=== PATIENT | male | born 1940 | race Caucasian/White ===

== ENCOUNTER → 2024-08-09 | Outpatient (CLI) | payer MEDICARE, BC, SELFPAY ==
[2024-08-09 11:06] LABS: Collection Type, Urine Clean Catch; Squamous Epithelial Cell,Urine 0 /hpf (0-5)
[2024-08-09 11:26] LABS: Basophils % (Auto) 1 % (0-2.5); Eosinophils # (Auto) 0.6 Thou/mm3 (0.0-0.5); Eosinophils % (Auto) 9 % (0-10); Hematocrit 37.1 % (41.0-53.0); Hemoglobin 12.1 g/dL (13.5-16.0); Immature Granulocytes % (Auto) 0 % (0-0); Immature Granulocytes Auto 0.02 Thou/mm3 (0.00-0.00); Lymphocytes # (Auto) 2.4 Thou/mm3 (1.0-4.8); Lymphocytes % (Auto) 34 % (10-50); Mean Corpuscular HGB Conc 32.6 g/dl (31.0-37.0); Mean Corpuscular Hemoglobin 29.7 pg (25.0-35.0); Mean Corpuscular Volume 91 fL (80-100); Monocytes # (Auto) 0.5 Thou/mm3 (0.0-0.8); Monocytes % (Auto) 7 % (0-12); Neutrophils # (Auto) 3.5 Thou/mm3 (1.8-7.7); Neutrophils % (Auto) 50 % (37-80); Nucleated Red Blood Cell % 0 /100 WBC (0); Platelet Count 207 Thou/mm3 (140-440); RDW Standard Deviation 44.4 fL (35.1-43.9); Red Blood Count 4.08 Miln/mm3 (4.50-5.90)
[2024-08-09 11:27] LABS: Bacteria,Urine Rare; Bilirubin,Urine Negative (Negative); Blood,Urine Negative (Negative); Clarity,Urine Turbid (Clear/Hazy); Color,Urine Lt-Yellow (Lt Yel-Yel); Glucose, Urine Negative (Negative); Ketones,Urine Negative (Negative); Leukocyte Esterase,Urine Positive (Negative); Nitrite,Urine Positive (Negative); PH,Urine 6.5 (5.0-7.0); Protein,Urine Negative (Neg - Trace); RBC,Urine 10 /hpf (0-3); Specific Gravity,Urine 1.006 (1.001-1.035); Urobilinogen,Urine Negative mg/dL (0.0-1.0); WBC,Urine 156 /hpf (0-5)
[2024-08-09 11:34] LABS: Glucose Estimated Average 137 mg/dL (80-131); Hemoglobin A1C 6.4 % Hgb (4.8-6.0)
[2024-08-09 11:38] LABS: Creatinine MALB Rnd Ur 17 mg/dL (30-125); Microalbumin Creat Ratio 41 mg/gCrea (<30); Microalbumin, Random Urine 7 mg/L (0-300)
[2024-08-09 11:44] LABS: PSA Medicare Annual Scrn 2.73 ng/mL (0-4.00)
[2024-08-09 12:00] LABS: Alanine Aminotransferase 13 U/L (10-49); Albumin/Globulin Ratio 2.4 (1.2-2.2); Alkaline Phosphatase 82 U/L (46-116); Anion Gap 8 (7-16); Aspartate Amino Transferase 13 U/L (0-34); BUN/Creatinine Ratio 15 Ratio (12-20); Bilirubin,Total 0.3 mg/dL (0.3-1.2); Blood Urea Nitrogen 17 mg/dL (9-23); Calcium 9.6 mg/dL (8.3-10.6); Calcium (Corrected) 9.6 mg/dL (8.5-10.1); Carbon Dioxide 26.5 mMol/L (20.0-31.0); Cardiac Risk Estimate 3.2 RATIO (4.0-6.7); Chloride 107 mMol/L (98-107); Cholesterol 146 mg/dL (132-200); Creatinine (Component) 1.1 mg/dL (0.6-1.3); Globulin 2.1 gm/dL (2.3-3.5); Glucose 101 mg/dL (74-106); HDL Cholesterol 46 mg/dL (40-60); LDL Cholesterol,Calculated 57 mg/dL (0-130); Osmolality,Calculated 282 (275-295); Potassium 4.7 mMol/L (3.4-5.1); Sodium 141 mMol/L (136-145); Thyroid Stimulating Hormone 2.48 uIU/mL (0.55-4.78); Total Protein 7.1 gm/dL (5.7-8.2); Triglycerides 214 mg/dL (30-150); eGFR > 60 See Note
== END | disposition home or self-care (01) ==
LOC: COPL 10:34
PROVIDERS: PCP Internal Medicine; Referring Provider Internal Medicine; Visit Provider Internal Medicine
DX: N17.9 Acute kidney failure, unspecified (principal); E11.9 Type 2 diabetes mellitus without complications; I10 Essential (primary) hypertension; E78.5 Hyperlipidemia, unspecified; E03.9 Hypothyroidism, unspecified
CPT/HCPCS: 36415; 80053; 80061; 81001; 82043; 82570; 83036; 84153; 84443; 85025; G0103

== ENCOUNTER → 2024-12-16 | Outpatient (CLI) | payer MEDICARE, BC, SELFPAY ==
[2024-12-16 08:13] LABS: Collection Type, Urine Clean Catch
[2024-12-16 08:39] LABS: Basophils # (Auto) 0.1 Thou/mm3 (0.0-0.2); Basophils % (Auto) 1 % (0-2.5); Eosinophils # (Auto) 0.6 Thou/mm3 (0.0-0.5); Eosinophils % (Auto) 7 % (0-10); Hematocrit 36.4 % (41.0-53.0); Immature Granulocytes % (Auto) 0 % (0-0); Immature Granulocytes Auto 0.03 Thou/mm3 (0.00-0.00); Lymphocytes # (Auto) 2.4 Thou/mm3 (1.0-4.8); Lymphocytes % (Auto) 26 % (10-50); Mean Corpuscular Hemoglobin 29.2 pg (25.0-35.0); Mean Corpuscular Volume 89 fL (80-100); Monocytes # (Auto) 0.7 Thou/mm3 (0.0-0.8); Monocytes % (Auto) 8 % (0-12); Neutrophils # (Auto) 5.5 Thou/mm3 (1.8-7.7); Neutrophils % (Auto) 59 % (37-80); Nucleated Red Blood Cell % 0 /100 WBC (0); Platelet Count 201 Thou/mm3 (140-440); RDW Standard Deviation 43.4 fL (35.1-43.9); Red Blood Count 4.11 Miln/mm3 (4.50-5.90); White Blood Count 9.4 Thou/mm3 (3.8-10.6)
[2024-12-16 09:01] LABS: Alanine Aminotransferase 12 U/L (10-49); Albumin, Serum 4.6 gm/dL (3.4-4.8); Albumin/Globulin Ratio 2.1 (1.2-2.2); Alkaline Phosphatase 82 U/L (46-116); Anion Gap 8 (7-16); Aspartate Amino Transferase 13 U/L (0-34); BUN/Creatinine Ratio 19 Ratio (12-20); Bilirubin,Total 0.6 mg/dL (0.3-1.2); Blood Urea Nitrogen 27 mg/dL (9-23); Calcium 9.4 mg/dL (8.3-10.6); Calcium (Corrected) 9.4 mg/dL (8.5-10.1); Carbon Dioxide 26.4 mMol/L (20.0-31.0); Chloride 106 mMol/L (98-107); Cholesterol 136 mg/dL (132-200); Creatinine (Component) 1.4 mg/dL (0.6-1.3); Globulin 2.2 gm/dL (2.3-3.5); Glucose 133 mg/dL (74-106); HDL Cholesterol 45 mg/dL (40-60); LDL Cholesterol,Calculated 43 mg/dL (0-130); Osmolality,Calculated 286 (275-295); Potassium 4.4 mMol/L (3.4-5.1); Sodium 140 mMol/L (136-145); Thyroid Stimulating Hormone 0.16 uIU/mL (0.55-4.78); Total Protein 6.8 gm/dL (5.7-8.2); Triglycerides 238 mg/dL (30-150); eGFR 50 See Note
[2024-12-16 09:15] LABS: Glucose Estimated Average 131 mg/dL (80-131); Hemoglobin A1C 6.2 % Hgb (4.8-6.0)
[2024-12-16 09:27] LABS: Bacteria,Urine 3+; Bilirubin,Urine Negative (Negative); Blood,Urine Negative (Negative); Clarity,Urine Turbid (Clear/Hazy); Color,Urine Lt-Yellow (Lt Yel-Yel); Glucose, Urine Negative (Negative); Ketones,Urine Negative (Negative); Leukocyte Esterase,Urine Positive (Negative); Nitrite,Urine Positive (Negative); Protein,Urine Negative (Neg - Trace); RBC,Urine 3 /hpf (0-3); Specific Gravity,Urine 1.014 (1.001-1.035); Squamous Epithelial Cell,Urine < 1 /hpf (0-5); Urobilinogen,Urine Negative mg/dL (0.0-1.0); WBC,Urine 408 /hpf (0-5)
== END | disposition home or self-care (01) ==
LOC: COPL 07:06
PROVIDERS: PCP Internal Medicine; Referring Provider Internal Medicine; Visit Provider Internal Medicine
DX: E11.9 Type 2 diabetes mellitus without complications (principal); I10 Essential (primary) hypertension; E78.5 Hyperlipidemia, unspecified; E03.9 Hypothyroidism, unspecified
CPT/HCPCS: 36415; 80053; 80061; 81001; 83036; 84439; 84443; 85025

== ENCOUNTER → 2025-01-03 | Outpatient (CLI) | payer MEDICARE, BC, SELFPAY ==
--- NOTE | 2025-01-03 14:00 | XR_ITS ---
Examination: Retroperitoneal ultrasound, complete Technique: Multiple high resolution grayscale images of the retroperitoneum obtained, including kidneys and bladder. Exam date and time:January 03, 2025 1416 hours INDICATIONS: Acute renal insufficiency on laboratory examinations over weeks ago. FINDINGS: Right kidney 10.2 cm cortex 1.4 cm Left kidney 10.7 cm renal cortex 1.1 cm Moderate bilateral renal parenchymal scar formation. No hydronephrosis. No bladder mass or bladder calculi Bladder prevoid volume 430 cc postvoid volume 367 cc No prostatomegaly no prostate nodules IMPRESSION: Bilateral renal cortical thinning Moderate bilateral renal parenchymal scar formation. No hydronephrosis
== END | disposition home or self-care (01) ==
LOC: CDIM 13:52
PROVIDERS: PCP Internal Medicine; Referring Provider Internal Medicine; Visit Provider Internal Medicine
DX: N28.89 Other specified disorders of kidney and ureter (principal)
CPT/HCPCS: 76770

== ENCOUNTER → 2025-02-20 | Outpatient (CLI) | payer MEDICARE, BC, SELFPAY ==
--- NOTE | 2025-02-20 11:44 | XR_ITS ---
Examination: Thoracic spine 3 views TECHNIQUE: AP lateral coned lateral upper dorsal spine 3 views Date and time: February 20, 2025 1217 hours INDICATIONS: Upper back pain beginning several years ago. FINDINGS: Thoracic dextroscoliosis 10 degrees No thoracic fracture Moderate thoracic spondylosis Mild to moderate diffuse thoracic degenerative disc disease IMPRESSION: Mild to moderate diffuse thoracic degenerative disc disease
--- NOTE | 2025-02-20 11:44 | XR_ITS ---
Examination: Knee bilateral, 7 views Technique: Knee AP, lateral, oblique each knee total 6 views, bilateral axial knees single view total 7 views Date and time of exam: 10/23/2024 1201 hours INDICATIONS: Bilateral knee pain several years FINDINGS: Right knee moderate to advanced narrowing medial joint space, moderate osteoarthritis patellofemoral joint No fracture Total left knee arthroplasty. Satisfactory alignment No loosening of the prosthetic components No patellar dislocation IMPRESSION: Right knee moderate to advanced narrowing medial joint space, moderate osteoarthritis patellofemoral joint
--- NOTE | 2025-02-20 11:44 | XR_ITS ---
Examination: Bilateral hips, AP pelvis, 5 views Technique: AP, lateral views both hips, AP pelvis, 5 views Exam date and time: 02/20/2025 1201 hours INDICATIONS: Bilateral hip pain several years FINDINGS: No hip fracture or hip dislocation Moderate narrowing hip joints Bones the pelvis intact IMPRESSION: Bilateral moderate narrowing hip joints
--- NOTE | 2025-02-20 11:44 | XR_ITS ---
Examination: Lumbar spine, 5 views Technique: Lumbar spine AP, lateral, coned lateral lower lumbar spine, bilateral obliques 5 views Exam date and time: February 20, 2025 1201 hours INDICATIONS: Low back pain beginning several years ago FINDINGS: Comparison 05/16/2022 Advanced diffuse facet arthropathy No lumbar fracture Diffuse lumbar degenerative disc disease, advanced L4-L5, L5-S1 Heavy vascular calcification IMPRESSION: Diffuse lumbar degenerative disc disease, advanced L4-L5, L5-S1 with significant spinal stenosis
--- NOTE | 2025-02-20 11:44 | XR_ITS ---
EXAMINATION: Cervical spine, 5 views Technique: Cervical spine AP, AP odontoid, lateral, bilateral obliques, 5 views Exam date and time: 10/23/2024 1201 hours INDICATIONS: Neck pain several years. FINDINGS: Satisfactory alignment cervical vertebral bodies Advanced degenerative disc disease C5 C6 C6 C7 C7 T1 Intact odontoid No cervical fracture Heavy carotid vascular calcification IMPRESSION: Advanced degenerative disc disease C5-C6, C6-C7, C7-T1 with moderate bilateral neural foraminal stenosis at these levels
== END | disposition home or self-care (01) ==
LOC: CDIM 11:30
PROVIDERS: Referring Provider Internal Medicine; Visit Provider Internal Medicine
DX: M50.322 Other cervical disc degeneration at C5-C6 level (principal); M48.02 Spinal stenosis, cervical region; M50.33 Other cervical disc degeneration, cervicothoracic region; M48.03 Spinal stenosis, cervicothoracic region; M51.360 Other intervertebral disc degeneration, lumbar region with discogenic back pain only; M48.061 Spinal stenosis, lumbar region without neurogenic claudication; M51.370 Other intervertebral disc degeneration, lumbosacral region with discogenic back pain only; M48.07 Spinal stenosis, lumbosacral region; M51.34 Other intervertebral disc degeneration, thoracic region; M25.852 Other specified joint disorders, left hip; M25.851 Other specified joint disorders, right hip; M25.861 Other specified joint disorders, right knee; Z96.652 Presence of left artificial knee joint; M25.562 Pain in left knee; M17.11 Unilateral primary osteoarthritis, right knee
CPT/HCPCS: 72050; 72072; 72110; 73522; 73564

== ENCOUNTER → 2025-03-14 | Outpatient (CLI) | payer MEDICARE, BC, SELFPAY ==
[2025-03-14 08:16] LABS: Collection Type, Urine Clean Catch
[2025-03-14 09:17] LABS: Albumin, Serum 4.7 gm/dL (3.4-4.8); Anion Gap 12 (7-16); BUN/Creatinine Ratio 18 Ratio (12-20); Blood Urea Nitrogen 27 mg/dL (9-23); Calcium 9.4 mg/dL (8.3-10.6); Calcium (Corrected) 9.4 mg/dL (8.5-10.1); Carbon Dioxide 25.5 mMol/L (20.0-31.0); Chloride 102 mMol/L (98-107); Creatinine (Component) 1.5 mg/dL (0.6-1.3); Free T4 (Free Thyroxine) 1.94 ng/dL (0.89-1.76); Glucose 166 mg/dL (74-106); Osmolality,Calculated 286 (275-295); Phosphorous 2.9 mg/dL (2.4-5.1); Potassium 4.7 mMol/L (3.4-5.1); Sodium 139 mMol/L (136-145); Thyroid Stimulating Hormone 0.18 uIU/mL (0.55-4.78); eGFR 45 See Note
[2025-03-14 09:52] LABS: Bacteria,Urine 2+; Bilirubin,Urine Negative (Negative); Blood,Urine Negative (Negative); Clarity,Urine Turbid (Clear/Hazy); Color,Urine Lt-Yellow (Lt Yel-Yel); Glucose, Urine Negative (Negative); Hyaline Casts,Urine < 1 /hpf (0-1); Ketones,Urine Negative (Negative); Leukocyte Esterase,Urine Positive (Negative); Nitrite,Urine Positive (Negative); PH,Urine 5.5 (5.0-7.0); Protein,Urine Negative (Neg - Trace); RBC,Urine 2 /hpf (0-3); Specific Gravity,Urine 1.013 (1.001-1.035); Squamous Epithelial Cell,Urine < 1 /hpf (0-5); Urobilinogen,Urine Negative mg/dL (0.0-1.0); WBC,Urine 129 /hpf (0-5)
[2025-03-14 09:58] LABS: Culture Indicated,Urine Yes
== END | disposition home or self-care (01) ==
LOC: COPL 07:17
PROVIDERS: PCP Internal Medicine; Referring Provider Internal Medicine; Visit Provider Internal Medicine
DX: E03.9 Hypothyroidism, unspecified (principal); N17.9 Acute kidney failure, unspecified; N39.0 Urinary tract infection, site not specified
CPT/HCPCS: 36415; 80069; 81001; 84439; 84443; 87077; 87086; 87186

== ENCOUNTER 2025-03-19 02:04 | Emergency (ER) | payer MEDICARE, BC, SELFPAY ==
[2025-03-19 02:11] VITALS: BP 125/73; PULSE 106; RESP 19; TEMP 37.3; O2SAT 94; BMI 25.1
--- NOTE | 2025-03-19 02:23 | PD.EDABDPN ---
ED Abdominal Pain RME/HPI General Chief Complaint: General Adult/Misc Complain Stated complaint: CONSTIPATION Time seen by provider: 03/19/25 02:43 Arrival date/time: 03/19/25 02:04 RME / HPI RME / HPI narrative: This section includes all my notes and documentations, including HPI, PE, and ED course. Sushant Bradley MD HPI: 85yo male with a history of DM presents to the ED for a chief complaint of constipation. No bowel movement for 2 days. No nausea or vomiting. No alcohol or illicit drug use. No fever or chills. No other complaints reported. ROS: All negative except as documented in HPI. Physical Exam: General: Alert and oriented. No acute distress when remaining still. Eyes: Conjunctivae and lids clear. ENT: No nasal congestion. Neck: Supple. Heart: RRR. Lungs: No respiratory distress. Good air movement. No rhonchi, wheezing, rales. Abdomen: Soft with suprapubic tenderness. Normal bowel sounds. No distension. No rebound or guarding. Back: No CVA tenderness. Skin: Warm and dry. Neuro: Alert and oriented X 3. Rectal: External hemorrhoids noted, nonthrombosed. I reviewed EMS notes. I reviewed all diagnostic test results. My review of the CT abdomen pelvis report is constipation. Blood tests unremarkable. UA showed positive nitrite, positive leukocyte esterase, 6 RBCs, 61 WBCs, and 2+ bacteria. At this point, diagnoses include Urinary retention, Constipation, UTI (urinary tract infection), and Hemorrhoids. Treatment here included indwelling Marrero catheter, NS and Rocephin. Significant improvement noted. Recommend outpatient management. Based on my best medical judgment, made decision no further evaluation or treatment indicated at this time. Patient understands and agrees to the discharge instructions customized and printed, see below. Discharge Instructions from Dr. Bradley printed for you: 1. After evaluation, your diagnoses include urinary retention and severe constipation and urinary tract infection and hemorrhoids. 2. For your urinary retention, care of the Marrero catheter as instructed in the attached handout. Do not remove the Marrero catheter until cleared by a doctor taking care of you. 3. For your severe constipation: -Take Senokot S (not plain Senokot, OTC so prescription not needed) four pills at bedtime and milk of magnesia as needed. May take a few days but this will help clear out your bowels. -You have hard feces in your rectum. Where a glove with K-Y jelly and insert 2 fingers in your rectum. And evacuate as much as possible. ?To help current constipation and prevent future constipation, increase oral fluid because dehydration cause severe constipation. Maintain clear urine. If dark or yellow, increase oral fluid. ?And every day, increase fresh fruits and fresh vegetables and physical exercise. 4. For UTI, take cefdinir to kill the germs. And increase oral fluid and maintain clear urine. If dark or yellow, increase oral fluid. 5. For hemorrhoids, use Anusol as prescribed. 6. See a private doctor on 03/21/2025 for recheck and further care. Ask to review all test results and official radiology reports, to make sure you receive all necessary follow-ups and monitoring, including final urine culture results from today. To make sure there is no serious intra-abdominal condition, ask for help with more investigation not available here in the ER. Such as EGD or scoping the stomach, colonoscopy or scoping the colon, and referral to see steward/stewardess lounge. Ask for help until you are completely better. Ask for referral to see urologist for your urinary retention. 7. Seek immediate medical care with worsening or with any concerns. Sushant Bradley MD Related Data Home Medications ?Medication ?Instructions ?Recorded ?Confirmed Levothyroxine * (SYNTHROID *) 125 mcg PO QDAY ##30 03/22/16 celecoxib 200 mg capsule 200 mg PO QDAY ##30 03/22/16 gabapentin 400 mg capsule 400 mg PO QDAY ##270 03/22/16 lisinopril 10 mg tablet 10 mg PO QDAY #0 tabs 03/22/16 Previous Rx's ?Medication ?Instructions ?Recorded cefdinir 300 mg capsule 300 mg PO BID #14 caps 03/19/25 hydrocortisone acetate 25 mg 25 mg FL BID 14 days #28 ea 03/19/25 rectal suppository (Anusol-HC) magnesium hydroxide 2,400 mg/10 mL 30 ml PO QDAY PRN constipation #60 03/19/25 oral suspension (Milk Of Magnesia mL Concentrated) sennosides 8.6 mg-docusate sodium 4 tab-cap (4 x 8.6-50 mg) PO QDAY 03/19/25 50 mg tablet (Senokot-S) PRN constipation #20 tabs Allergies Allergy/AdvReac Type Severity Reaction Status Date / Time NKA* Allergy Uncoded 03/22/16 09:57 Review of Systems Review of Systems Systems Reviewed: All systems reviewed, normal except as documented ED Exam Narrative Physical exam: As noted in HPI. Course Quality Measures none Orders Category Date Time Status Marrero to [place] Routine Care 03/19/25 03:59 Ordered Saline [Insert IV] NOW Care 03/19/25 02:[address] abdomen pelvis wo con Stat Exams 03/19/25 02:27 Taken Amylase Stat Lab 03/19/25 02:39 Completed Bilirubin,Direct Stat Lab 03/19/25 02:39 Completed CBC Stat Lab 03/19/25 02:39 Completed CMP [Comprehensive Metabolic Panel] Stat Lab 03/19/25 02:39 Completed Lipase Stat Lab 03/19/25 02:39 Completed Magnesium Stat Lab 03/19/25 02:39 Completed UA, C/S IF [Urinalysis, C/S if Indicated] Stat Lab 03/19/25 04:03 Completed Urine Culture Stat Lab 03/19/25 04:03 Received Sodium Chloride 0.9% 1000 ml [Ns] 1,000 ml Med 03/19/25 02:27 Discontinued IV 999 mls/hr cefTRIAXone/D5w 1gm IV premix [Rocephin/D5w 1gm IV Med 03/19/25 04:54 Active premix] 1 gm in 50 ml IV X1 Vital Signs Vital signs: Vital Signs Temperature 99.2 F 03/19/25 02:11 Pulse Rate 106 H 03/19/25 02:11 Respiratory Rate 19 03/19/25 02:11 Blood Pressure 125/73 03/19/25 02:11 Pulse Oximetry (%) 94 L 03/19/25 02:11 Oxygen Delivery Method Room Air 03/19/25 02:11 Abdominal Pain MDM MDM Narrative MDM Narrative:: 85yo male with a history of DM presents to the ED for a chief complaint of constipation. No bowel movement for 2 days. No nausea or vomiting. No alcohol or illicit drug use. No fever or chills. No other complaints reported. Patient data External records reviewed:: [facility] previous records (Per chart review, patient has no previous ED visits or admissions to this facility.) and EMS form Clinical information provided by:: patient Social determinants that could affect healthcare access:: none Patient has the following chronic illnesses:: DM How is presenting disease/condition affected by chronic disease/condition?: uneffected by Evaluation data The following diagnostics were reviewed and interpreted by me:: lab results and radiology exam(s) Lab and/or radiology exams considered but not ordered:: none Interpretation Summary: I reviewed all diagnostic test results. My review of the CT abdomen pelvis report is constipation. Blood tests unremarkable. UA remarkable for positive nitrites, positive leukocyte esterase, 6 RBCs, 61 WBCs, and 2+ bacteria. Medications / Prescriptions Medications or Prescriptions considered but not ordered:: none Medication administrations:: Medication Administration History Ceftriaxone Sodium/Dextrose (Rocephin/D5w 1gm Iv Premix) 1 gm in 50 mls @ 100 mls/hr IV X1 ONE Stop: 03/19/25 05:23 Discontinued Medications Sodium Chloride (Ns) 1,000 mls @ 999 mls/hr IV .Q1H1M ONE Stop: 03/19/25 03:27 Last Admin: 03/19/25 03:21 Dose: 999 mls/hr Documented By: CG NS, Rocephin, and indwelling Marrero catheter. Consultations Consultation(s) initiated? (list below): No Diagnosis Differential diagnosis abdominal pain: acute appendicitis, calculus of kidney, constipation, diverticulitis, small bowel obstruction and other (UTI, hemorrhoids, urinary retention) Most likely diagnosis given after review of the tests above:: Urinary retention, Constipation, UTI (urinary tract infection), Hemorrhoids Admission Indicated Admission indicated?: not indicated Explain why admission is indicated or not indicated:: With significant improvement and no condition needing emergent intervention, there was no indication for admission. Admission Request Was there a request for admission?: No Disposition Plan Disposition Plan: Discharge Discharge Attestation Discharge Attestation: The patient and all family members were given an opportunity to ask questions and understood the discharge instructions. Discharge instructions specifically effects, indications for sooner follow up or return to the emergency department, and the expected course of current diagnosis. Patient condition: Stable Discharge Plan Plan Patient Disposition: HOME (Self Care) Prescriptions/Referrals Prescriptions/Med Rec: New magnesium hydroxide [Milk Of Magnesia Concentrated] 2,400 mg/10 mL suspension 30 ml PO QDAY PRN (Reason: constipation) Qty: 60 0RF sennosides-docusate sodium [Senokot-S] 8.6-50 mg tablet 4 tab-cap PO QDAY PRN (Reason: constipation) Qty: 20 0RF hydrocortisone acetate [Anusol-HC] 25 mg suppository 25 mg FL BID 14 Days Qty: 28 0RF cefdinir 300 mg capsule 300 mg PO BID Qty: 14 0RF No Action celecoxib 200 MG capsule 200 mg PO QDAY Qty: 30 lisinopril 10 MG tablet 10 mg PO QDAY Qty: 0 Levothyroxine * (SYNTHROID *) 125 MCG tablet 125 mcg PO QDAY Qty: 30 gabapentin 400 MG capsule 400 mg PO QDAY Qty: 270 Referrals: Ramona Rodriguez MD [Primary Care Provider] - In 1 week Problem List Clinical Impression: Urinary retention, Constipation, UTI (urinary tract infection), Hemorrhoids Patient/Caregiver Discharge Instructions Discharge Activity: activity as tolerated Education Materials: ED Constipation (Adult), ED Marrero Catheter, Care, ED Hemorrhoids, ED Bladder Infection, Male (Adult) Additional Instructions: Discharge Instructions from Dr. Bradley printed for you: 1. After evaluation, your diagnoses include urinary retention and severe constipation and urinary tract infection and hemorrhoids. 2. For your urinary retention, care of the Marrero catheter as instructed in the attached handout. Do not remove the Marrero catheter until cleared by a doctor taking care of you. 3. For your severe constipation: -Take Senokot S (not plain Senokot, OTC so prescription not needed) four pills at bedtime and milk of magnesia as needed.? May take a few days but this will help clear out your bowels. -You have hard feces in your rectum. Where a glove with K-Y jelly and insert 2 fingers in your rectum. And evacuate as much as possible. ?To help current constipation and prevent future constipation, increase oral fluid because dehydration cause severe constipation.? Maintain clear urine.? If dark or yellow, increase oral fluid. ?And every day, increase fresh fruits and fresh vegetables and physical exercise. 4. For UTI, take cefdinir to kill the germs. And increase oral fluid and maintain clear urine. If dark or yellow, increase oral fluid. 5. For hemorrhoids, use Anusol as prescribed. 6. See a private doctor on 03/21/2025 for recheck and further care. Ask to review all test results and official radiology reports, to make sure you receive all necessary follow-ups and monitoring, including final urine culture results from today. To make sure there is no serious intra-abdominal condition, ask for help with more investigation not available here in the ER. Such as EGD or scoping the stomach, colonoscopy or scoping the colon, and referral to see steward/stewardess lounge. Ask for help until you are completely better. Ask for referral to see urologist for your urinary retention. 7. Seek immediate medical care with worsening or with any concerns. Print Language: Brazilian Stand Alone Forms: [employer] Award Info., Patient Portal Info Letter
[2025-03-19 02:24] VITALS: PULSE 101; RESP 16; O2SAT 98; BMI 25.1
--- NOTE | 2025-03-19 02:27 | XR_ITS ---
Examination: CT abdomen and pelvis without contrast. Coronal 3-D reconstructions. Sagittal 2-D reconstructions. Date and time of exam:March 19, 2025 at 0254 hours INDICATIONS: Abdominal pain and constipation today CTDI: vol (mGy): 8.36 DLP: (mGycm): 510 Technique: Axial images of the abdomen have been obtained, 3 mm slice thickness Intravenous contrast material has not been administered. Low dose protocols were performed. One or more of the following dose reduction techniques were used; automated exposure control, adjustment of the mA and/or KV according to patient size, use of iterative reconstruction technique. Findings: Retrocardiac gastric hernia No liver or splenic lesions No gallstones No pancreatic or adrenal mass No renal or ureteral calculi, perinephric stranding is present Aorta normal size Distended urinary bladder No bowel obstruction Large amounts of stool in the rectum with mild thickening of the rectal wall Fat-containing left inguinal hernia Advanced degenerative disc disease L4-L5, L5-S1 IMPRESSION: Large amounts of stool in the rectum with proctitis pattern
[2025-03-19 02:53] LABS: Basophils # (Auto) 0.0 Thou/mm3 (0.0-0.2); Basophils % (Auto) 0 % (0-2.5); Eosinophils # (Auto) 0.2 Thou/mm3 (0.0-0.5); Eosinophils % (Auto) 2 % (0-10); Hematocrit 33.3 % (41.0-53.0); Hemoglobin 11.5 g/dL (13.5-16.0); Immature Granulocytes Auto 0.05 Thou/mm3 (0.00-0.00); Lymphocytes # (Auto) 1.9 Thou/mm3 (1.0-4.8); Lymphocytes % (Auto) 13 % (10-50); Mean Corpuscular HGB Conc 34.5 g/dl (31.0-37.0); Mean Corpuscular Hemoglobin 30.3 pg (25.0-35.0); Mean Corpuscular Volume 88 fL (80-100); Monocytes # (Auto) 0.8 Thou/mm3 (0.0-0.8); Monocytes % (Auto) 6 % (0-12); Neutrophils # (Auto) 11.8 Thou/mm3 (1.8-7.7); Neutrophils % (Auto) 79 % (37-80); Nucleated Red Blood Cell # 0.00 Thou/mm3 (0.00-0.00); Nucleated Red Blood Cell % 0 /100 WBC (0); Platelet Count 195 Thou/mm3 (140-440); RDW Standard Deviation 40.7 fL (35.1-43.9); Red Blood Count 3.80 Miln/mm3 (4.50-5.90); White Blood Count 14.8 Thou/mm3 (3.8-10.6)
[2025-03-19 03:19] LABS: Alanine Aminotransferase 10 U/L (10-49); Albumin, Serum 4.6 gm/dL (3.4-4.8); Albumin/Globulin Ratio 1.9 (1.2-2.2); Alkaline Phosphatase 83 U/L (46-116); Amylase 55 U/L (30-118); Anion Gap 10 (7-16); Aspartate Amino Transferase 14 U/L (0-34); BUN/Creatinine Ratio 13 Ratio (12-20); Bilirubin,Direct 0.2 mg/dL (0.0-0.3); Bilirubin,Total 0.6 mg/dL (0.3-1.2); Blood Urea Nitrogen 15 mg/dL (9-23); Calcium 9.4 mg/dL (8.3-10.6); Calcium (Corrected) 9.4 mg/dL (8.5-10.1); Carbon Dioxide 25.4 mMol/L (20.0-31.0); Chloride 102 mMol/L (98-107); Creatinine (Component) 1.2 mg/dL (0.6-1.3); Estimated Creatinine Clearance 45.0 mL/min (>60); Globulin 2.4 gm/dL (2.3-3.5); Glucose 145 mg/dL (74-106); Lipase 23 U/L (12-53); Magnesium 1.7 mg/dL (1.6-2.6); Osmolality,Calculated 277 (275-295); Potassium 4.4 mMol/L (3.4-5.1); Sodium 137 mMol/L (136-145); Total Protein 7.0 gm/dL (5.7-8.2); eGFR 59 See Note
[2025-03-19] MEDS: SODIUM CHLORIDE 0.9% 1000 ML 1,000 ML 999 ML IV (03:21)
[2025-03-19 04:08] LABS: Collection Type, Urine Clean Catch; Squamous Epithelial Cell,Urine 0 /hpf (0-5)
[2025-03-19 04:13] LABS: Amorphous Crystals,Urine Present (Absent); Bacteria,Urine 2+; Bilirubin,Urine Negative (Negative); Blood,Urine Negative (Negative); Clarity,Urine Turbid (Clear/Hazy); Color,Urine Lt-Yellow (Lt Yel-Yel); Culture Indicated,Urine Yes; Glucose, Urine Negative (Negative); Ketones,Urine Trace (Negative); Leukocyte Esterase,Urine Positive (Negative); Nitrite,Urine Positive (Negative); PH,Urine 6.5 (5.0-7.0); Protein,Urine Negative (Neg - Trace); RBC,Urine 6 /hpf (0-3); Specific Gravity,Urine 1.010 (1.001-1.035); Urobilinogen,Urine Negative mg/dL (0.0-1.0); WBC,Urine 61 /hpf (0-5)
--- NOTE | 2025-03-19 04:23 | PRELIM_ITS ---
CT scan of the abdomen and pelvis without intravenous contrast (axial sections with sagittal and coronal reformats) March 19, 2025 0254 hours Clinical History: Abdominal pain. No bowel movements. Comparison: None. Findings: The lung bases are clear. The liver, gallbladder, spleen and adrenals are unremarkable on this noncontrast study. Punctate calcifications in the pancreatic head consistent with chronic pancreatitis without evidence of acute pancreatitis. No pancreatic duct dilation. Mild bilateral perinephric fat stranding. No hydronephrosis. No evidence of bowel obstruction. No evidence of appendicitis. There is no mesenteric or retroperitoneal adenopathy. The urinary bladder is unremarkable. There is no free fluid or free air. Degenerative changes of the imaged portions of the spine. Chronic multilevel disc disease. No acute fractures. Vascular calcifications. Impacted fecaloma in the rectum associated with fecal loading. Diverticulosis of the colon. Impression: Impacted fecaloma in the rectum associated with fecal loading. Disimpaction is recommended. Mild bilateral perinephric fat stranding suspicious for medical renal disease. Report Electronically Signed By: Yoel Cobb 03/19/2025 4:23:09 AM [EST]
[2025-03-19] MEDS: cefTRIAXone/D5w 1gm IV premix 1 GM/50 ML BAG IV (05:45)
[2025-03-19 06:27] VITALS: BP 130/71; PULSE 85; RESP 18; TEMP 36.8; O2SAT 95
== END 2025-03-19 07:20 | disposition home or self-care (01) ==
PROVIDERS: Emergency Provider Emergency Medicine; PCP Internal Medicine
DX: N39.0 Urinary tract infection, site not specified (principal); K64.9 Unspecified hemorrhoids; K56.41 Fecal impaction
CPT/HCPCS: 51702; 36415; 74176; 80053; 81001; 82150; 82248; 83690; 83735; 85025; 87077; 87086; 87186; 96361; 96365; 99283; A4314; J0696; J7030

== ENCOUNTER → 2025-04-28 | Outpatient (CLI) | payer MEDICARE, BC, SELFPAY ==
[2025-04-28 08:10] LABS: Collection Type, Urine Clean Catch; Squamous Epithelial Cell,Urine 0 /hpf (0-5)
[2025-04-28 08:49] LABS: Basophils # (Auto) 0.1 Thou/mm3 (0.0-0.2); Basophils % (Auto) 1 % (0-2.5); Eosinophils # (Auto) 0.7 Thou/mm3 (0.0-0.5); Eosinophils % (Auto) 8 % (0-10); Hematocrit 35.3 % (41.0-53.0); Hemoglobin 11.8 g/dL (13.5-16.0); Immature Granulocytes Auto 0.02 Thou/mm3 (0.00-0.00); Lymphocytes # (Auto) 2.7 Thou/mm3 (1.0-4.8); Lymphocytes % (Auto) 34 % (10-50); Mean Corpuscular HGB Conc 33.4 g/dl (31.0-37.0); Mean Corpuscular Hemoglobin 30.5 pg (25.0-35.0); Mean Corpuscular Volume 91 fL (80-100); Monocytes # (Auto) 0.6 Thou/mm3 (0.0-0.8); Monocytes % (Auto) 7 % (0-12); Neutrophils # (Auto) 3.9 Thou/mm3 (1.8-7.7); Neutrophils % (Auto) 50 % (37-80); Nucleated Red Blood Cell # 0.00 Thou/mm3 (0.00-0.00); Nucleated Red Blood Cell % 0 /100 WBC (0); Platelet Count 191 Thou/mm3 (140-440); RDW Standard Deviation 42.4 fL (35.1-43.9); Red Blood Count 3.87 Miln/mm3 (4.50-5.90); White Blood Count 7.9 Thou/mm3 (3.8-10.6)
[2025-04-28 08:59] LABS: Albumin, Serum 4.4 gm/dL (3.4-4.8); Anion Gap 12 (7-16); BUN/Creatinine Ratio 8 Ratio (12-20); Blood Urea Nitrogen 10 mg/dL (9-23); Calcium 9.4 mg/dL (8.3-10.6); Calcium (Corrected) 9.4 mg/dL (8.5-10.1); Carbon Dioxide 23.6 mMol/L (20.0-31.0); Chloride 105 mMol/L (98-107); Creatinine (Component) 1.2 mg/dL (0.6-1.3); Glucose 137 mg/dL (74-106); Osmolality,Calculated 282 (275-295); Phosphorous 3.3 mg/dL (2.4-5.1); Potassium 4.1 mMol/L (3.4-5.1); Sodium 141 mMol/L (136-145); eGFR 59 See Note
[2025-04-28 09:13] LABS: Creatinine MALB Rnd Ur 83 mg/dL (30-125); Microalbumin Creat Ratio 42 mg/gCrea (<30); Microalbumin, Random Urine 35 mg/L (0-300)
[2025-04-28 09:32] LABS: Bacteria,Urine 2+; Bilirubin,Urine Negative (Negative); Blood,Urine Negative (Negative); Clarity,Urine Turbid (Clear/Hazy); Color,Urine Lt-Yellow (Lt Yel-Yel); Glucose, Urine Negative (Negative); Ketones,Urine Negative (Negative); Leukocyte Esterase,Urine Positive (Negative); Nitrite,Urine Positive (Negative); PH,Urine 6.0 (5.0-7.0); Protein,Urine Negative (Neg - Trace); RBC,Urine 5 /hpf (0-3); Specific Gravity,Urine 1.013 (1.001-1.035); Urobilinogen,Urine Negative mg/dL (0.0-1.0); WBC,Urine 39 /hpf (0-5)
== END | disposition home or self-care (01) ==
LOC: COPL 07:01
PROVIDERS: PCP Internal Medicine; Referring Provider Internal Medicine; Visit Provider Internal Medicine
DX: N17.9 Acute kidney failure, unspecified (principal); R33.8 Other retention of urine
CPT/HCPCS: 36415; 80069; 81001; 82043; 82570; 85025

== ENCOUNTER → 2025-04-29 | Outpatient (CLI) | payer MEDICARE, BC, SELFPAY ==
[2025-04-29 08:59] LABS: Prostate Specific Antigen 2.23 ng/mL (0-4.00)
== END | disposition home or self-care (01) ==
LOC: COPL 07:31
PROVIDERS: PCP Internal Medicine; Referring Provider Surgery; Visit Provider Surgery
DX: N40.1 Benign prostatic hyperplasia with lower urinary tract symptoms (principal); R33.0 Drug induced retention of urine
CPT/HCPCS: 36415; 84153